=== PATIENT | male | born 1970 | race African-American/Black ===

== ENCOUNTER 2018-08-20 06:47 | Emergency (ER) | payer OTHER ==
[~2018-08-20] VITALS: Ht 188 cm; Wt 81.6 kg
[2018-08-20] MEDS ORDERED: HYDROCHLOROTHIA25 MG ORAL (06:57)
[2018-08-20 07:00] VITALS: BP 158/106
[2018-08-20] MEDS ORDERED: ACETAMINOPHEN-1 EAC1 ORAL (07:13)
[2018-08-20] MEDS ORDERED: AUGMENTIN 875-1 EAC1 ORAL (07:13)
[2018-08-20] MEDS ORDERED: IBUPROFEN600 MG ORAL (07:13)
[2018-08-20] MEDS ORDERED: Dexamethasone 4mg/ml vial IM ONE (07:15)
[2018-08-20] MEDS ORDERED: Acetaminophen 500mg (ES) tab ORAL ONE (07:15)
[2018-08-20] MEDS ORDERED: Augmentin 875mg Tab ORAL ONE (07:15)
--- NOTE | 2018-08-20 07:53 | Emergency Room Report ---
History of Present Illness General Chief Complaint: Sore Throat Source: Patient Present Illness HPI 47-year-old male presents ED for evaluation. Patient states that he experiences sore throat for one week. Pain is dull, 7 out of 10, nonradiating. Localized to left side of neck. Denies fevers or chills. Denies cough. Denies sick contacts or recent travel. Difficult to swallow. No other aggravating relieving factors. Denies any other associated symptoms Allergies: Coded Allergies: No Known Allergies (Unverified , 12/04/12) Patient History Past Medical History: HTN Past Surgical History: none Pertinent Family History: none Social History: Denies: smoking, alcohol use, drug use Immunizations: UTD Reviewed Nursing Documentation: PMH: Agreed; PSxH: Agreed Nursing Documentation-PMH Hx Hypertension: Yes - But no home meds. Review of Systems All Other Systems: negative except mentioned in HPI Physical Exam Vital Signs Date Time Temp Pulse Resp B/P (MAP) Pulse Ox O2 Delivery O2 Flow Rate FiO2 08/20/18 06:52 98.2 80 16 158/106 99 Room Air Sp02 EP Interpretation: reviewed, normal General Appearance: no apparent distress, alert, GCS 15, non-toxic Head: normocephalic Eyes: bilateral eye normal inspection, bilateral eye PERRL ENT: hearing grossly normal, no angioedema, normal voice, TMs + canals normal, uvula midline, pharyngeal erythema, other - some swelling to L paratonsillar area Neck: full range of motion, supple, no meningismus, supple/symm/no masses Respiratory: normal inspection Cardiovascular #1: normal inspection Gastrointestinal: normal inspection Rectal: deferred Genitourinary: no CVA tenderness Musculoskeletal: normal inspection Neurologic: alert, oriented x3, responsive, motor strength/tone normal, sensory intact, speech normal Psychiatric: normal inspection Skin: normal inspection Lymphatic: normal inspection Medical Decision Making Diagnostic Impression: Primary Impression: Pharyngitis Qualified Codes: J02.9 - Acute pharyngitis, unspecified ER Course Hospital Course 47-year-old male presents to ED complaining of sore throat x 1 week Differential diagnoses include: URI, pharyngitis, otitis media Clinical course Patient placed on stretcher. After initial history, physical exam reveals a middle aged male in no acute distress. Bilateral TM unremarkable. There is pharyngeal erythema w/o tonsillar exudates. There is some mild swelling to the left peritonsillar region. No discharge. No lymphadenopathy. Consideration of pharyngitis versus a peritonsillar abscess. Discussed findings with the patient. I offered option for attempted aspiration but patient declined. He will try conservative treatment first with antibiotics , steroids. recommend prompt return to ED if swelling gets worse Patient given Augmentin, Decadron, Tylenol here. We discharged with antibiotics. Safe for discharge and close outpatient follow-up Diagnosis - pharyngitis Stable and discharged home with prescriptions for augmentin, tylenol #3, motrin. Instructed to followup with PMD. return to ED if symptoms recur or worsen Last Vital Signs Date Time Temp Pulse Resp B/P (MAP) Pulse Ox O2 Delivery O2 Flow Rate FiO2 08/20/18 07:26 98.4 82 15 155/103 99 Room Air Status: improved Disposition: HOME, SELF-CARE Condition: Stable Scripts Ibuprofen* (MOTRIN*) 600 Mg Tablet 600 MG ORAL Q8H PRN for For Pain, #30 TAB 0 Refills Prov: Joao Schwartz MD 08/20/18 Acetaminophen With Codeine (T#3) (TYLENOL #3 TAB*) Y Tab 1 TAB ORAL Q8H PRN for For Pain for 3 Days, TAB Prov: Joao Schwartz MD 08/20/18 Amoxicillin/Potassium Clav 875-125* (AUGMENTIN 875-125 TABLET*) 1 Each Tablet 1 TAB ORAL TWICE A DAY, #14 TAB Prov: Joao Schwartz MD 08/20/18 Referrals: NON PHYSICIAN (PCP) Departure Forms: Return to Work Return to Work Date: Aug 22, 2018 Work Restrictions: None Patient Instructions: Peritonsillar Abscess, [id number] Joao Schwartz MD Aug 20, 2018 07:53
== END 2018-08-20 07:35 | disposition home or self-care (01) ==
LOC: EMR 07:20
DX: J02.9 Acute pharyngitis, unspecified (principal); I10 Essential (primary) hypertension
CPT/HCPCS: 96372; 99283

== ENCOUNTER 2018-12-27 07:42 | Emergency (ER) | payer OTHER ==
[~2018-12-27] VITALS: Ht 188 cm; Wt 79.4 kg
[~2018-12-27 07:42] MED LIST: ACETAMINOPHEN-1 EAC1 ORAL; AUGMENTIN 875-1 EAC1 ORAL; HYDROCHLOROTHIA25 MG ORAL; IBUPROFEN600 MG ORAL
[2018-12-27] MEDS ORDERED: Meclizine 25mg tab ORAL ONE (08:15)
[2018-12-27 08:37] LABS: APPEARANCE,URINE CLEAR; BILIRUBIN, URINE NEGATIVE (NEGATIVE); GLUCOSE, URINE (UA) NEGATIVE (NEGATIVE); KETONES,URINE NEGATIVE (NEGATIVE); LEUKOCYTE ESTERASE ,URINE NEGATIVE (NEGATIVE); NITRITE,URINE NEGATIVE (NEGATIVE); PH,URINE 6.5 (4.5-8.0); PROTEIN,URINE 1+ (NEGATIVE); UROBILINOGEN,URINE NORMAL MG/DL (0.0-1.0)
[2018-12-27 08:38] VITALS: BP 168/120
[2018-12-27 08:40] LABS: COLOR,URINE YELLOW
--- NOTE | 2018-12-27 08:40 | NUR ---
ED Nurse Note:pt. came from home with c/o dizziness and headache, pt. is A/Ox4 ambulatory, seen by ER mD ,blood and urine sent to labs, given IV fluids and meds
[2018-12-27 08:44] LABS: HEMOGLOBIN 14.6 G/DL (14.2-18.0); MEAN CORPUSCULAR VOLUME 95 FL (80-99); PLATELET COUNT 137 K/UL (150-450); RED BLOOD COUNT 4.53 M/UL (4.70-6.10); RED CELL DISTRIBUTION WIDTH 11.5 % (11.6-14.8)
[2018-12-27 09:04] LABS: ANION GAP 8 mmol/L (5-15); BLOOD UREA NITROGEN 11 mg/dL (7-18); CALCIUM 10.6 MG/DL (8.5-10.1); CARBON DIOXIDE 32 MMOL/L (21-32); CHLORIDE 98 MMOL/L (98-107); POTASSIUM 3.6 MMOL/L (3.5-5.1); SODIUM 138 MMOL/L (136-145)
[2018-12-27 09:16] LABS: ALANINE AMINOTRANSFERASE 31 U/L (12-78); ALBUMIN 4.4 G/DL (3.4-5.0); ALBUMIN/GLOBULIN RATIO 1.2 (1.0-2.7); ALKALINE PHOSPHATASE 80 U/L (46-116); ASPARTATE AMINO TRANSFERASE 21 U/L (15-37); BILIRUBIN,TOTAL 0.7 MG/DL (0.2-1.0); CKMB 1.8 NG/ML (0.0-3.6); CREATINE KINASE 242 U/L (26-308)
--- NOTE | 2018-12-27 10:21 | Diagnostic Imaging Report ---
Indication: Dizziness, vertigo Technique: MRI the brain performed utilizing T1 sagittal, T2 axial, T1 FLAIR axial, T2 FLAIR axial, T2*GRE and diffusion axial images without gadolinium. Comparison: None Findings: There are foci of restricted diffusion with matched signal dropout on ADC within the left cerebellar hemisphere and left inferior cerebellar peduncle consistent with areas of acute infarction. No additional focus of restricted effusion is identified. There is no evidence of focal signal dropout on gradient echo to suggest acute intracranial hemorrhage. A punctate focus of T2 signal hyperintensity is noted within the ventricular white matter of the left frontal lobe which is nonspecific and may represent sequela of chronic microvascular ischemia. There is no shift of midline structures. Ventricles, sulci and cisterns are within normal limits for age. Expected large vessel flow voids are noted in the skull base on T2. Mastoid air cells are clear. There is mild paranasal sinuses with mucosal thickening and small retention cyst in the left maxillary sinus. Orbits grossly unremarkable. No focal calvarial lesion identified. IMPRESSION: Acute infarcts involving the left cerebellar hemisphere and left inferior cerebellar peduncle. Findings discussed with the treating ER physician via telephone conversation. No evidence of acute intracranial hemorrhage or shift of the midline structures. Mild left maxillary sinus disease.
--- NOTE | 2018-12-27 10:31 | Emergency Room Report ---
History of Present Illness General Chief Complaint: Dizziness Source: Patient Present Illness HPI The patient states that since Monday, 5 days ago, he has had a spinning sensation, nausea and then sensation like he is falling to his left side. He has had a headache. He denies recent illness. He denies cough or congestion. He denies fever or chills. He denies neck pain. He denies chest pain or shortness of breath. He has no other complaints. Allergies: Coded Allergies: No Known Allergies (Unverified , 12/27/18) Patient History Past Medical History: see triage record, HTN Social History: Reports: smoking, alcohol use, drug use Reviewed Nursing Documentation: PMH: Agreed; PSxH: Agreed Nursing Documentation-PMH Past Medical History: No History, Except For Hx Hypertension: Yes Review of Systems All Other Systems: negative except mentioned in HPI Physical Exam Vital Signs Date Time Temp Pulse Resp B/P (MAP) Pulse Ox O2 Delivery O2 Flow Rate FiO2 12/27/18 07:47 98.2 98 16 168/120 94 Room Air Sp02 EP Interpretation: reviewed, normal General Appearance: no apparent distress, alert, GCS 15, non-toxic Head: normocephalic, atraumatic Eyes: bilateral eye normal inspection, bilateral eye PERRL ENT: hearing grossly normal, normal pharynx, no angioedema, normal voice Neck: full range of motion, supple/symm/no masses Respiratory: chest non-tender, lungs clear, normal breath sounds, no respiratory distress, no retraction, no accessory muscle use, speaking full sentences Cardiovascular #1: regular rate, rhythm, no edema Gastrointestinal: normal bowel sounds, non tender, soft, non-distended, no guarding, no rebound Rectal: deferred Musculoskeletal: back normal, gait/station normal, normal range of motion, non- tender Neurologic: alert, oriented x3, responsive, motor strength/tone normal, sensory intact, normal gait, speech normal Psychiatric: judgement/insight normal, memory normal, mood/affect normal, no suicidal/homicidal ideation Skin: normal color, no rash, warm/dry, well hydrated Medical Decision Making Diagnostic Impression: Primary Impression: Acute cerebrovascular accident of cerebellum ER Course This patient has acute infarct involving the left cerebellar hemisphere and left inferior cerebellar peduncle. I discussed the case with the on-call neurologist who is unavailable to see the patient at this time here at [facility]. He recommended aspirin and Plavix which the patient was given here in the emergency department. The patient's insurance company requested his transfer to the [facility]. The patient is stable for transfer. Laboratory Tests Test 12/27/18 08:15 White Blood Count 3.0 K/UL (4.8-10.8) L Red Blood Count 4.53 M/UL (4.70-6.10) L Hemoglobin 14.6 G/DL (14.2-18.0) Hematocrit 43.0 % (42.0-52.0) Mean Corpuscular Volume 95 FL (80-99) Mean Corpuscular Hemoglobin 32.3 PG (27.0-31.0) H Mean Corpuscular Hemoglobin Concent 34.1 G/DL (32.0-36.0) Red Cell Distribution Width 11.5 % (11.6-14.8) L Platelet Count 137 K/UL (150-450) L Mean Platelet Volume 10.9 FL (6.5-10.1) H Neutrophils (%) (Auto) % (45.0-75.0) Lymphocytes (%) (Auto) % (20.0-45.0) Monocytes (%) (Auto) % (1.0-10.0) Eosinophils (%) (Auto) % (0.0-3.0) Basophils (%) (Auto) % (0.0-2.0) Differential Total Cells Counted 100 Neutrophils % (Manual) 67 % (45-75) Lymphocytes % (Manual) 25 % (20-45) Monocytes % (Manual) 8 % (1-10) Eosinophils % (Manual) 0 % (0-3) Basophils % (Manual) 0 % (0-2) Band Neutrophils 0 % (0-8) Platelet Estimate Decreased L Platelet Morphology Normal Urine Color Yellow Urine Appearance Clear Urine pH 6.5 (4.5-8.0) Urine Specific [place] 1.015 (1.005-1.035) Urine Protein 1+ (NEGATIVE) H Urine Glucose (UA) Negative (NEGATIVE) Urine Ketones Negative (NEGATIVE) Urine Blood Negative (NEGATIVE) Urine Nitrite Negative (NEGATIVE) Urine Bilirubin Negative (NEGATIVE) Urine Urobilinogen Normal MG/DL (0.0-1.0) Urine Leukocyte Esterase Negative (NEGATIVE) Urine RBC 0-2 /HPF (0 - 0) H Urine WBC 0-2 /HPF (0 - 0) Urine Squamous Epithelial Cells Occasional /LPF Urine Bacteria Occasional /HPF (NONE) Sodium Level 138 MMOL/L (136-145) Potassium Level 3.6 MMOL/L (3.5-5.1) Chloride Level 98 MMOL/L (98-107) Carbon Dioxide Level 32 MMOL/L (21-32) Anion Gap 8 mmol/L (5-15) Blood Urea Nitrogen 11 mg/dL (7-18) Creatinine 1.0 MG/DL (0.55-1.30) Estimate Glomerular Filtration Rate > 60 mL/min (>60) Glucose Level 105 MG/DL (74-106) Calcium Level 10.6 MG/DL (8.5-10.1) H Total Bilirubin 0.7 MG/DL (0.2-1.0) Aspartate Amino Transferase (AST) 21 U/L (15-37) Alanine Aminotransferase (ALT) 31 U/L (12-78) Alkaline Phosphatase 80 U/L (46-116) Total Creatine Kinase 242 U/L (26-308) Creatine Kinase MB 1.8 NG/ML (0.0-3.6) Creatine Kinase MB Relative Index 0.7 Total Protein 8.0 G/DL (6.4-8.2) Albumin 4.4 G/DL (3.4-5.0) Globulin 3.6 g/dL Albumin/Globulin Ratio 1.2 (1.0-2.7) Urine Opiates Screen Negative (NEGATIVE) Urine Barbiturates Screen Negative (NEGATIVE) Phencyclidine (PCP) Screen Negative (NEGATIVE) Urine Amphetamines Screen Positive (NEGATIVE) H Urine Benzodiazepines Screen Negative (NEGATIVE) Urine Cocaine Screen Negative (NEGATIVE) Urine Marijuana (THC) Screen Positive (NEGATIVE) H EKG Diagnostic Results Rate: normal Rhythm: NSR ST Segments: no acute changes Rhythm Strip Diag. Results EP Interpretation: yes Rate: 90's Rhythm: NSR, no PVC's, no ectopy, other CT/MRI/US Diagnostic Results CT/MRI/US Diagnostic Results : Imaging Test Ordered: MRI Brain Impression Acute infarcts involving the left cerebellar hemisphere and left inferior cerebellar peduncle. Findings discussed with the treating ER physician via telephone conversation. No evidence of acute intracranial hemorrhage or shift of the midline structures. Mild left maxillary sinus disease. Last Vital Signs Date Time Temp Pulse Resp B/P (MAP) Pulse Ox O2 Delivery O2 Flow Rate FiO2 12/27/18 08:38 98.2 88 16 168/120 94 Room Air Disposition: XFER SHT-TRM HOSP Condition: Serious Referrals: [facility],REFERRING (PCP) Thania Mitchell DO Dec 27, 2018 10:31
[2018-12-27 11:21] VITALS: BP 173/116
--- NOTE | 2018-12-27 11:23 | NUR ---
ED Nurse Note: Spoke to senior case manager. SARINA was notified of patient's BP 173/116 with HR 84 and patient took Norvasc 10mg and HCTZ 12.5mg today @ 0730. No further order received at this time.
--- NOTE | 2018-12-27 11:40 | NUR ---
ED Nurse Note: Report given to JESÚS Bonds. Patient resting in bed.
--- NOTE | 2018-12-27 11:51 | Diagnostic Imaging Report ---
Indication: Chest pain, weakness Technique: XRAY Chest 1v Comparison: None Findings: Heart size and mediastinal contours are within normal limits. There is no focal consolidation, pneumothorax or pleural effusion. Osseous structures demonstrate no acute abnormality. Impression: No radiographic evidence of acute cardiopulmonary disease.
--- NOTE | 2018-12-27 12:00 | NUR ---
ED Nurse Note:pt. was given hydralizine for HTN
--- NOTE | 2018-12-27 12:15 | NUR ---
AMA:pt. was explained by ER all seriousness of his diagnosis but he still wanted to AMA, he signed the form and walked out with steady gait and all personal belongings, A/Ox4 SEE AMA FORM.
[2018-12-27 12:23] VITALS: BP 173/116
--- NOTE | 2018-12-28 13:41 | Cardiology Report ---
APPROVED REPORT EKG Measurement Heart [id number] Normal sinus rhythm Moderate voltage criteria for LVH, may be normal variant Nonspecific T wave abnormality Prolonged QT Abnormal ECG
== END 2018-12-27 12:28 | disposition left against medical advice (07) ==
LOC: EMR 08:05
DX: I63.9 Cerebral infarction, unspecified (principal); I10 Essential (primary) hypertension
CPT/HCPCS: 36415; 70551; 71045; 80053; 80307; 81003; 82550; 82553; 85007; 85025; 93005; 96361; 96374; 99284; J0360

== ENCOUNTER 2020-08-27 01:29 | Emergency (ER) | payer MEDICAID, OTHER ==
[~2020-08-27] VITALS: Ht 188 cm; Wt 81.6 kg
[2020-08-27] MEDS ORDERED: METOPROLOL TART50 M1 ORAL (01:37)
[2020-08-27] MEDS ORDERED: ASPIRIN81 MG ORAL (01:37)
[2020-08-27] MEDS ORDERED: Morphine Sulfate 2mg/ml Inj(IV/IM USE ONLY) IM ONE (01:45)
[2020-08-27] MEDS ORDERED: Tetanus/Diptheria/Pertussis IM ONE ×2 (01:45)
[2020-08-27] MEDS ORDERED: Morphine Sulfate 4mg/ml Inj (IV USE ONLY) ONE (01:45)
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
[2020-08-27 01:57] VITALS: BP 200/120
--- NOTE | 2020-08-27 01:59 | NUR ---
ED Nurse Note: xray at bedside
[2020-08-27] MEDS ORDERED: Lidocaine 1% Plain 30 ml INJ ONE (02:15)
[2020-08-27] MEDS ORDERED: CEPHALEXIN500 MG ORAL (02:40)
[2020-08-27] MEDS ORDERED: BACITRACIN15 GM TOPIC (02:40)
[2020-08-27] MEDS ORDERED: Bacitracin Oint UD TOPIC ONE (02:45)
[2020-08-27] MEDS ORDERED: Cephalexin 500mg cap ORAL ONE (02:45)
[2020-08-27] MEDS ORDERED: Surgicel 4in x 8in TOPIC ONE (03:00)
[2020-08-27] MEDS ORDERED: NORCO 5-325 TA1 EAC1 ORAL (03:07)
[2020-08-27 03:10] VITALS: BP 185/100
--- NOTE | 2020-08-27 03:10 | NUR ---
ER DISCHARGE NOTE: Patient is cleared to be discharged per ERMD, pt is aox4, on room air, with stable vital signs. pt was given dc and prescription instructions, pt was able to verbalize understanding, pt id band removed. pt is able to ambulate with steady gait. pt took all belongings.
--- NOTE | 2020-08-27 15:52 | Diagnostic Imaging Report ---
Indication: Right leg pain Technique: 2 views of the right tibia and fibula Comparison: none Findings: No acute fracture. No dislocation. The joint spaces are preserved. Impression: Negative
== END 2020-08-27 03:10 | disposition home or self-care (01) ==
LOC: EMR 01:38
DX: S81.811A Laceration without foreign body, right lower leg, initial encounter (principal); S80.11XA Contusion of right lower leg, initial encounter; I10 Essential (primary) hypertension; V09.9XXA Pedestrian injured in unspecified transport accident, initial encounter; Y93.51 Activity, roller skating (inline) and skateboarding; Y92.410 Unspecified street and highway as the place of occurrence of the external cause; Z86.73 Personal history of transient ischemic attack (TIA), and cerebral infarction without residual deficits
CPT/HCPCS: 73590; 90471; 90715; 96372; J2270; Z7502; 99283